=== PATIENT | female | born 1975 | race Caucasian/White ===

== ENCOUNTER 2017-11-22 15:23 | Emergency (ER) | payer MEDICAID, SELFPAY ==
[2017-11-22 15:24] VITALS: BP 146/66; PULSE 56; RESP 18; TEMP 36.6; O2SAT 100; BMI 23.8
--- NOTE | 2017-11-22 15:32 | VDLE_ITS ---
Reason For Study: LEG PAIN RIGHT LEFT CFV is compressible, spontaneous, phasic, GSV is normal. competent and demonstrates normal CFV is compressible, spontaneous, phasic, augmentation. competent, and demonstrates normal Procedure augmentation. Exam performed portable in ED. FV is compressible, spontaneous, phasic, A preliminary report was called and/or faxed competent and demonstrates normal to Dr. Resendiz. augmentation. POP V is compressible, spontaneous, phasic, competent and demonstrates normal augmentation. T/P Trunk is compressible. PTV is compressible. LT PerV is compressible. Interpretation Summary Deep veins of the left lower extremity are patent and compressible segmentally. There is no evidence of left lower extremity deep vein thrombosis. Valvular competence appears intact within the proximal deep venous system on the left . The left greater saphenous vein appears patent and compressible segmentally. Ordering Physician: Meg Resendiz Performed By: Tarah Gottlieb RVT
--- NOTE | 2017-11-22 15:33 | ED.VISSUMM ---
- ER Visit Summary Date of Service: 11/22/17 Chief Complaint: Left side pain History of Present Illness: The patient is a 42 F presenting with left thigh pain and swelling ?4 months. Patient states that the pain and swelling has moved around to different parts of her posterior thigh. She denies fever, chest pain, shortness of breath. She has no PE/DVT risk factors other than a gallbladder surgery in September. She has history of thighplasty 11 months ago. She has not been able to get into see her plastic surgeon. She denies other complaints. She went to urgent care today and was sent to the ED for further evaluation. Physical Examination: Vitals are stable. Patient is afebrile. Alert no acute distress. HEENT exam is unremarkable. Neck is supple. Lungs are clear and equal bilaterally. Heart is regular rate and rhythm. Abdomen is soft nontender nondistended. Extremities mild left posterior thigh tenderness. No warmth, erythema. Medial thigh incision which is well-healed, clean dry and intact. Normal DP/PT pulses. Skin is warm and dry. No focal neurologic deficit. Remainder of exam is unremarkable. Emergency Department Course and Treatment: Venous Doppler left lower extremity shows no evidence of DVT. Patient is advised to follow-up with her primary care physician and plastic surgeon. She is advised return to ED for worsening complaints. Disposition: Discharged home Impression: Chronic left lower extremity pain This note was generated with [employer] dictation software. It may contain incorrect words, spelling, and punctuation that were not noted in review of the chart prior to signing ED Disposition - Plan for ED Patient: Chief Complaint: Lower Extremity Injury Instructions: ED Spasm Muscle Referrals: NOT,DEFINED [NON-STAFF] -
--- NOTE | 2017-11-22 16:30 | ED.DEP ---
ED Disposition - Plan for ED Patient: Chief Complaint: Lower Extremity Injury Instructions: ED Spasm Muscle Referrals: NOT,DEFINED [NON-STAFF] -
== END 2017-11-22 16:40 | disposition home or self-care (01) ==
LOC: ED 15:57
PROVIDERS: Emergency Provider Emergency Medicine
DX: M79.652 Pain in left thigh (principal); G89.29 Other chronic pain
CPT/HCPCS: 93971; 99282

== ENCOUNTER 2020-07-30 13:59 | Emergency (ER) | payer MEDICAID, SELFPAY ==
[2020-07-30 14:00] VITALS: BP 156/78; PULSE 63; PULSE 65; RESP 18; TEMP 36.8; O2SAT 100; BMI 30.6
--- NOTE | 2020-07-30 14:17 | EKG12_ITS ---
Test Reason : FATIGUE Blood Pressure : / mmHG Vent. Rate : 055 BPM Atrial Rate : 055 BPM P-R Int : 140 ms QRS Dur : 094 ms QT Int : 420 ms P-R-T Axes : 004 033 026 degrees QTc Int : 401 ms Sinus bradycardia Otherwise normal ECG Confirmed by HERI BEY, MARTÍNEZ ([id number]), digital editor ULISES NORMAN ([id number]) on 08/04/2020 10:43:12 AM Referred By: SYDNEE Confirmed By:MARTÍNEZ LIRIANO MD
--- NOTE | 2020-07-30 14:19 | ED.VIS.GEN ---
History of Present Illness Chief Complaint: Fatigue Informant: Patient Narrative: 45-year-old female presenting with multiple complaints. She states she has had some burning chest pain as well as dyspepsia. She states her throat is sore and a little raspy. She states this began yesterday. She also states that she has felt lightheaded and does not feel like her typical vertigo. Patient has not had a vertigo episode in many years. Patient states she has not had any shortness of breath, fever, myalgias, change in taste or smell. Patient states she went to urgent care yesterday and was told to come to the ED however she did not. Patient denies significant medical history. She is on control. She has no other DVT/PE risk factors. Patient does state that she also had an atypical period which lasted for 10 days and then resolved and then came back. She states that it was not heavy but did last a long time. Past Medical History - Allergies and Home Meds Allergies/Adverse Reactions: Allergies sulfamethoxazole [From Bactrim] Allergy (Verified 11/22/17 15:26) Unknown trimethoprim [From Bactrim] Allergy (Verified 11/22/17 15:26) Unknown Primary Care Physician: Care Physician,No Primary [NON-STAFF] - Prior records reviewed: Yes Past Medical History: - - Seasonal allergies. Surgical History: noncontributory Lives: Spouse/ Significant Other Smoking Status: Never smoker Alcohol: None Drugs: None Review of Systems General: Denies: Chills, Fever, Sweats Eyes: Denies: Visual changes - bilaterally, Diplopia ENT: Reports: Sore throat. Denies: Rhinorrhea Cardiovascular: Reports: Chest pain. Denies: Palpitations, Heart racing Respiratory: Denies: Dyspnea, Cough, Sputum Gastrointestinal: Reports: Nausea, - - Dyspepsia. Denies: Abdominal pain, Vomiting Genitourinary: Denies: Dysuria, Hematuria Musculoskeletal: Denies: Myalgias, Arthralgias Skin: Denies: Rash, Abscess Neurological: Reports: Headache. Denies: Parasthesia, Numbness Psych: Denies: Depression, Anxiety Physical Exam Vital Signs/Narrative: Vital Signs Temp Pulse Resp BP Pulse Ox 07/30/20 14:00 98.3 F 65 18 156/78 H 100 Inital Vital Signs reviewed: Yes General: Well nourished, Well developed, No Acute Distress Head: Normocephalic, Atraumatic Eyes: Perrl, EOMI. Negative for: Pale conjunctiva ENT: Moist mucous membranes, No rhinorrhea Cardiovascular: Regular rate, Regular rhythm Respiratory: No distress, CTA bilaterally Extremities: Nontender, No edema Skin: Normal color, No rash. Negative for: Cyanosis Neurological: Alert, Oriented x3, Cranial nerves II-XII grossly intact Psychological: Normal affect, Normal Mood Diagnostic/Tx/Re-eval - Rhythm Strip Rhythm Strip: Sinus Rhythm Rate: 55 - EKG Initial EKG Interpretation: No Acute Injury Pattern, Sinus Bradycardia - Medical Decision Making 44-year-old female presenting with dyspepsia and fatigue as well as lightheadedness. She states that she has burning esophageal and retrosternal pain. She is not had this in the past. EKG performed on shows a sinus rhythm of 55 bpm with no ischemic change as interpreted by myself. Chest x-ray as interpreted by myself shows no acute cardiopulmonary process. CBC, CMP, troponin all within normal limits. D-dimer is negative. Vital signs are stable and she is afebrile. Patient orthostatic vital signs which were negative as well. I am able to produce her dizziness with modified Jose-Hallpike and head turning to the left. I was going to give the patient meclizine however she thinks she had a reaction to this in the past and does not want to take it. She will be given prescriptions for Phenergan and Prilosec. Given that her work-up was ultimately negative and her discomfort does not sound cardiac in nature I will discharge her home to follow-up with her PCP. Patient stable for discharge. Impression: 1. Vertigo 2. Dyspepsia 3. Atypical chest pain ED Disposition - Plan for ED Patient: Disposition: Home or Assisted Living Instructions: ED Vertigo, Unspecified, ED GERD (Adult) Prescriptions: proMETHazine tablet [Phenergan] 25 mg PO Q6H PRN PRN #10 tab PRN Reason: Nausea Prescription Printed Omeprazole [Prilosec] 20 mg PO DAILY #30 cap Prescription Printed Referrals: Care Physician,No Primary [NON-STAFF] -
--- NOTE | 2020-07-30 14:27 | NURSING ---
NO OLD EKGS
--- NOTE | 2020-07-30 14:40 | RAD_ITS ---
STUDY: X-RAY CHEST REASON FOR EXAM: Female, 45 years old. DIZZINESS AND FATIGUE SINCE TUESDAY, PT SEEN [facility]ER[facility], and quot;CHEST ON FIRE and quot; RASPY VOICE, ARM WEAKNESS, PT HAVING HEAVY PERIODS. TECHNIQUE: Single AP portable view of the chest. COMPARISON: None. FINDINGS: The lungs are clear and expanded. There is no demonstrated pleural abnormality. Normal size heart. Normal mediastinum and margot. Normal visualized pulmonary arteries. Normal visualized aortic arch and descending thoracic aorta. Normal visualized thoracic spine. Normal visualized ribs, clavicles, and shoulders. There is no demonstrated abnormality of the visualized soft tissue structures of the upper abdomen. RAD/Chest 1 View (Portable) IMPRESSION: Normal x-ray examination of the chest. Electronically Signed: Stone Caruso MD at 15:02 EST , Service support ,
[2020-07-30 14:54] LABS: Bacteria 0 SEEN /hpf (None Seen); Mucous, Urine 0 SEEN /hpf (<or=2+); Red Blood Cells-Urine 0 SEEN /hpf (0-5); White Blood Cells 0 SEEN /hpf (0-5)
[2020-07-30 14:56] LABS: Color, Urine Yellow (Yellow); Glucose, Dipstick Normal (Normal); Ketone-Dipstick Negative (Negative); Leukocyte Esterase-Dipstick Negative /ul (Negative); Nitrite-Dipstick Negative (Negative); Occult Blood-Urine Negative /ul (Negative); Protein-Dipstick Negative (Negative); Specific Gravity, Urine 1.005 (1.002-1.030); Urine Bilirubin Dipstick Negative (Negative); Urine Clarity Clear (Clear); Urine Urobilinogen Normal (Normal)
[2020-07-30 15:02] LABS: Absolute Lymphocyte Count 1.51 X10^3/uL (0.83-4.51); Absolute Neutrophil Count 5.2 X10^3/uL (2.0-7.7); Basophil# 0.02 X10^3/uL; Basophil% 0.3 % (0-1); Eosinophil# 0.03 X10^3/uL; Eosinophils% 0.4 % (0-5); Hematocrit 40.8 % (37-47); Hemoglobin 13.4 g/dL (12.0-15.0); Lymphocyte # 1.51 X10^3/ul (4.0); Lymphocyte % 20.8 % (19-41); Mean Corp Hgb Conc 32.8 g/dL (32-36); Mean Corpuscular Hgb 30.5 pg (27.0-32.0); Mean Corpuscular Volume 92.7 fL (81-99); Monocyte# 0.44 X10^3/uL; Monocyte% 6.1 % (0-10); NRBC Flagged by Analyzer 0 % (0-5); Neutrophil # 5.24 X10^3/uL (2.7-7.7); Neutrophil % 72.1 % (47-70); Platelet Count 209 K/mm3 (150-450); RBC Distribution Width SD 44.4 fl (35.1-43.9); White Blood Count 7.3 K/mm3 (4.4-11.0)
[2020-07-30 15:03] LABS: Squamous Epithelial Cells - UA 0-5 SEEN /hpf (5-10)
[2020-07-30 15:04] VITALS: BP 128/66; BP 135/72; BP 137/67; PULSE 57; PULSE 58; PULSE 62
[2020-07-30 15:18] LABS: D-Dimer Quantitative (DVT/PE) <= 0.27 FEU/ug/m (0.27-0.49)
[2020-07-30 15:22] LABS: AST(SGOT) 20 U/L (15-37); Alanine Aminotransfer ALT/SGPT 21 U/L (13-56); Alkaline Phosphatase 72 U/L (45-117); Anion Gap 5 (5-15); BUN 12 mg/dL (7-18); BUN/Creat Ratio 16.1 RATIO (10-20); Bilirubin, Direct 0.16 mg/dL (0.00-0.30); Calcium,Total 9.6 mg/dL (8.5-10.1); Chloride 108 mmol/L (98-107); Creatinine, Serum 0.74 mg/dL (0.55-1.02); EST Glomerular Filtration Rate 90 mL/min (>60); Est Glom Filt Rate - Afr Amer 109 mL/min (>60); Estimated Creatinine Clearance 73.97 ml/min; Globulin 3.8 g/dL (2.2-4.2); Glucose 77 mg/dL (74-106); Potassium 3.9 mmol/L (3.5-5.1); Protein, Total 7.8 g/dL (6.4-8.2); Sodium Level 139 mmol/L (136-145)
== END 2020-07-30 16:42 | disposition home or self-care (01) ==
PROVIDERS: Emergency Provider Student in an Organized Health Care Education/Training Program; PCP Internal Medicine
DX: R42 Dizziness and giddiness (principal); R10.13 Epigastric pain; R07.89 Other chest pain
CPT/HCPCS: 71045; 80048; 80076; 81001; 84484; 85025; 85379; 93005; 99284; A4216

== ENCOUNTER 2022-06-03 13:22 | Emergency (ER) | payer MEDICAID, SELFPAY ==
[2022-06-03 13:23] VITALS: BP 160/68; PULSE 55; RESP 15; TEMP 36.5; O2SAT 100; BMI 31.4
--- NOTE | 2022-06-03 14:45 | EDS_ITS ---
HPI History of Present Illness Chief Complaint: Upper Extremity Injury Informant: patient Onset/Context/Timing Onset: Weeks (2) Context: Gradual Onset Timing: Continuous Quality of Pain: Aching and Burning Location: Right neck and upper arm, parascapular area Current Severity: Severe Maximum Severity: Severe Worsened by: Moving head to the right Relieved by: Nothing. Taking NSAIDs. Associated Symptoms Associated Symptoms: Negative for Parasthesia, Weakness or Loss of Funtion Narrative Narrative: Patient has had pain in her neck and right upper arm for the past 5 years, she had a radioablation of C5-6, 6-7 2 weeks ago at [place] by [facility] pain management physician Dr. Dangelo, and states since then the pain is gradually worsened, similar distribution as before, and now it is worse than it ever has been. She has developed no new symptoms. No fevers or chills. No weakness of her arm or symptoms that go down to or beyond the elbow. No leg neurologic symptoms. [facility] Medical History Neck pain Home Medications levonorgestrel-ethinyl estradiol 0.1 mg-20 mcg tablet (Aviane) 1 tab PO DAILY 11/22/17 [History Last Taken Unknown] loratadine 10 mg tablet (Allergy Relief (loratadine)) 10 mg PO DAILY 11/22/17 [History Last Taken Unknown] promethazine 25 mg tablet 25 mg PO Q6H PRN PRN Nausea #10 tabs 07/30/20 [Rx Last Taken Unknown] ketorolac 10 mg tablet 10 mg PO BID 5 days #10 tabs 06/03/22 [Rx Last Taken Unknown] Allergy/AdvReac Type Severity Reaction Status Date / Time prednisone Allergy Rash Verified 06/03/22 13:23 sulfamethoxazole Allergy Unknown Verified 11/22/17 15:26 [From Bactrim] trimethoprim [From Bactrim] Allergy Unknown Verified 11/22/17 15:26 Social History Smoking Status: Never smoker ROS ROS ED Constitutional Constitutional ED: Denies chills or fever(s) Eyes Eyes: Denies change in vision or diplopia ENT ENT ED: Denies rhinorrhea or sore throat Cardiovascular Cardiovascular: Denies chest pain or palpitations Respiratory/Chest Respiratory/Chest: Denies cough or dyspnea Gastrointestinal Gastrointestinal: Denies abdominal pain, diarrhea, nausea or vomiting Genitourinary Genitourinary ED: Denies dysuria or hematuria Musculoskeletal Musculoskeletal: Reports as per HPI, back pain, extremity pain and neck pain Integumentary Denies abscess or rash Neurologic Neurologic: Denies headache(s), paresthesias or weakness Psychiatric Psychiatric: Denies anxiety or suicidal thoughts EXAM Physical Exam Const Vital Signs: 06/03/22 13:23 Temperature 97.7 F L Temperature Source Temporal Pulse Rate 55 L Respiratory Rate 15 Blood Pressure 160/68 H Blood Pressure Mean 98 Pulse Ox 100 Oxygen Delivery Method Room Air Positive well nourished and well developed General Appearance ED: well developed and NAD HEENT Reports moist mucous membranes normocephalic and atraumatic Eyes PERRL and EOMs intact bilaterally Neck full ROM and supple Neck Narrative: Mild diffuse right paraspinal tenderness. Normal inspection. No signs of cellulitis. No fullness or abscess. No midline bony tenderness. Able to move her neck but it hurts to right rotation. Resp normal respiratory effort Effort and Inspection: able to speak in complete sentences Back/Spine no CVA tenderness General Back: other FROM Extremity normal to inspection General Extremety ED: Negative for edema, pulses abnormal or tenderness General Extremity: Negative for edema or pulses abnormal Neuro oriented x3, CN's II-XII intact bilaterally and no sensory deficits noted Neuro Narrative: Normal motor function and sensory throughout the right upper extremity. Sensorium / Orientation: awake and alert Motor Exam: strength 5/5 throughout Skin no rashes or lesions noted and no wounds MDM MDM MDM Narrative Medical decision making narrative: Discussed with Dr. Dangelo's office, that is typical postprocedural symptomatology. This is also consistent with the lack of any clinical findings of infection or other complication. They recommended prednisone in most patients who have this flareup after the procedure but she declares allergy to it so in that case they recommend Toradol 10 mg twice daily x5 days after an injection in the office which we will do here, and the patient was okay getting a [place] here as well. We will hold off on gabapentin at this time, the patient has a prescription for that at home from a long time ago but basically did not want to take it so she never has. Discharge Plan Triage Chief Complaint: Upper Extremity Injury ED Provider: Gautam Hare Dx/Rx/DC Orders Clinical Impression: Neuropathic pain, Cervical radiculopathy Instructions: ED Radiculopathy, Cervical Prescriptions: New ketorolac 10 mg tablet 10 mg PO BID 5 Days Qty: 10 0RF Continued levonorgestrel-ethinyl estrad [Aviane] 0 tablet 1 tab PO DAILY Label Comments: loratadine [Allergy Relief (loratadine)] 10 MG tablet 10 mg PO DAILY promethazine 25 MG tablet 25 mg PO Q6H PRN PRN (Reason: Nausea) Qty: 10 0RF Discontinued naproxen 500 MG tablet 500 mg PO BID PRN PRN (Reason: Pain) Primary Care Provider: Zoey Heredia Referrals: Zoey Heredia MD [Primary Care Provider] - Doctor,Your [Non-Staff] - 1 Week if not improving Activity Restrictions/Additional Instructions: Per Dr. Dangelo's office, neuropathic pain is common for the first 4-6 weeks after radiofrequency ablation of the nerve. Disposition Disposition: Home, Self Care
[2022-06-03] MEDS: Ketorolac 60 MG/2 ML Vial IM (15:34)
[2022-06-03 16:13] VITALS: BP 128/77; PULSE 62; RESP 15; O2SAT 98
== END 2022-06-03 16:14 | disposition home or self-care (01) ==
PROVIDERS: Emergency Provider Emergency Medicine; PCP Internal Medicine; Visit Provider Emergency Medicine
DX: G62.9 Polyneuropathy, unspecified (principal); M54.12 Radiculopathy, cervical region
CPT/HCPCS: 96372; 99283

== ENCOUNTER 2023-03-18 15:59 | Outpatient (RCR) | payer MEDICAID, SELFPAY ==
--- NOTE | 2023-09-19 09:47 | HP.PT.NRP ---
Patient Information Patient Information: FABIOLA MANZANO was seen in my office for initial evaluation on . The following Plan of Care was established for this patient: Last Seen Last Seen: This patient was last seen in our office 03/18/23. Pertinent comments regarding their Physical therapy will appear below: Pt. was seen in PT for self pay DN. Pt. has not been seen since and will be DC from PT at this point in time. At this point I will be discontinuing this patient from physical therapy. I would be happy to see this patient again in the future if found appropriate by the physician. Thank you! Juarez Harmon, EDVINT
== END 2023-03-18 19:00 | disposition home or self-care (01) ==
LOC: PT 15:59
PROVIDERS: PCP Internal Medicine
DX: Z00.00 Encounter for general adult medical examination without abnormal findings (principal)